=== PATIENT | male | born 1955 | race Caucasian/White ===

== ENCOUNTER 2022-01-02 17:13 | Emergency (ER) | payer OTHER, SELFPAY ==
[2022-01-02 17:14] VITALS: BP 132/99; PULSE 72; RESP 14; TEMP 36.9; O2SAT 98; BMI 27.8
--- NOTE | 2022-01-02 18:23 | XR_ITS ---
PROCEDURE INFORMATION: Exam: XR Right Knee Exam date and time: 01/02/2022 6:23 PM Age: 66 years old Clinical indication: Pain; Knee; Right; Additional info: Pain, swelling TECHNIQUE: Imaging protocol: XR Right knee. Views: 3 views. COMPARISON: No relevant prior studies available. FINDINGS: Bones/joints: Right knee suprapatellar effusion. Soft tissues: Normal. IMPRESSION: Right knee suprapatellar effusion.
--- NOTE | 2022-01-02 18:50 | HMH.EDGENADL ---
ED Disposition Clinical Impression: Effusion, right knee Disposition: Home, Self-Care Condition on Discharge: Good Instructions: How to Use Crutches, DI for Knee Effusion, How to Use a Knee Immobilizer Additional Instructions: Prednisone as prescribed. Knee immobilizer and crutches as needed. Follow-up with orthopedics, Dr. Alfonso, call for appointment. Prescriptions: predniSONE [Prednisone 20mg Tab] 20 mg PO BID #10 tab Transmission Status: Pending to [facility] Referrals: Provider,Jai, [Primary Care Provider] - - Critical Care Critical Care Time: No Attestation: On 01/02/22, the high probability of a clinically significant, sudden or life threatening deterioration of the following system(s) required my full and direct attention, intervention and personal management. The time I documented below is in addition to time spent performing reported procedures but includes the following listed in this critical care notation. Medical Decision Making - Erich Inquiry Pt receiving controlled substance: No Vital Signs: 01/02/22 17:14 Temperature 98.4 F Temperature Source Oral Pulse Rate [Left Radial] 72 Respiratory Rate 14 Blood Pressure [Left Arm] 132/99 H Blood Pressure Mean [Left Arm] 110 Blood Pressure Source [Left Arm] Automatic Cuff Blood Pressure Position [Left Arm] Sitting 02 Sat by Pulse Oximetry 98 Oxygen Delivery Method Room Air Orders (Tests/Meds): ED MEDICATIONS Discontinued Medications Generic Name Dose Route Start Last Admin Trade Name Freq PRN Reason Stop Dose Admin Dexamethasone Sodium Phosphate 10 mg 01/02/22 19:00 Dexamethasone 4mg/Ml 1ml Vial IM 01/02/22 19:01 ONCE ONE - Radiology Data #1 Image(s): Knee Image Reviewed: Yes I reviewed the patient's radiology image Preliminary Findings: Abnormal (effusion) PROCEDURE INFORMATION: Exam: XR Right Knee Exam date and time: 01/02/2022 6:23 PM Age: 66 years old Clinical indication: Pain; Knee; Right; Additional info: Pain, swelling TECHNIQUE: Imaging protocol: XR Right knee. Views: 3 views. COMPARISON: No relevant prior studies available. FINDINGS: Bones/joints: Right knee suprapatellar effusion. Soft tissues: Normal. IMPRESSION: Right knee suprapatellar effusion. General Adult HPI - General Chief complaint: PAIN Stated complaint: R KNEE PAIN Time Seen by Provider: 01/02/22 18:50 Mode of Arrival: Wheelchair Limitations: No Limitations Description of Symptoms (Recalled from ER Triage Doc. by RN): Pt c/o rt knee pain and swelling since yesterday AM. No known injury. Pt reports hx of bursitis in that knee. - History of Present Illness HPI narrative: 2-day history of right knee pain and swelling. Pain with weightbearing. No injury, but says that he was hauling some wood before all of this started. Similar thing happened a few years ago he states he was told he had bursitis in March and eventually need a knee replacement. He said he was given an injection of cortisone and prednisone and that helped. - Related Data Previous Rx's Medication Instructions Recorded predniSONE [Prednisone 20mg 20 mg PO BID #10 tab 01/02/22 Tab] Allergies Allergy/AdvReac Type Severity Reaction Status Date / Time No Known Allergies Allergy Verified 01/02/22 18:08 [facility] History - Hepatitis A Screen Drug use history?: No High risk sexual behaviors?: No History of sexually transmitted infection?: No Currently employed?: No Childcare worker?: No Do you have indoor plumbing?: Yes Do you have electricity?: Yes Attestation statement:: This patient has been screened for Hepatitis A risk factors. I have reviewed the patient's past medical history: Yes ROS Obtained: Yes Systems reviewed as appropriate & no additional complaints - Constitutional Constitutional: Denies fever(s) - Musculoskelet
[2022-01-02 19:15] VITALS: BP 134/89; PULSE 82; RESP 16; TEMP 36.6; O2SAT 97
--- NOTE | 2022-01-02 19:27 | PC.NURSE ---
KNEE IMMOBILIZER APPLIED TO RIGHT KNEE. CRUTCHES GIVEN WITH CRUTCH TRAINING. PT ABLE TO GIVE RETURN DEMONSTRATION.
== END 2022-01-02 19:29 | disposition home or self-care (01) ==
PROVIDERS: Emergency Provider Emergency Medicine
DX: M25.461 Effusion, right knee (principal)
CPT/HCPCS: 29505; 73562; 96372; 99283

== ENCOUNTER 2025-03-22 12:11 | Outpatient (CLI) | payer MEDICARE, SELFPAY ==
--- NOTE | 2025-03-22 12:18 | XR_ITS ---
FINAL REPORT CLINICAL HISTORY: PAIN..no trauma COMPARISON: None FINDINGS: NECK SOFT TISSUE Two views of the neck using soft tissue technique show a normal appearance of the epiglottis. No radiopaque foreign body identified. The precervical soft tissues are unremarkable. There is degenerative disease of the spine without acute osseous abnormality. IMPRESSION: Unremarkable neck exam using soft tissue technique. Reviewed, Interpreted and Dictated by Joan Cage MD Transcribed by Mariama Lopez Authenticated and . [facility]
== END 2025-03-22 23:59 | disposition home or self-care (01) ==
LOC: RAD 12:13
PROVIDERS: PCP Family Medicine; Visit Provider Family Medicine
DX: M54.2 Cervicalgia (principal)
CPT/HCPCS: 70360

== ENCOUNTER 2025-03-28 10:09 | Emergency (ER) | payer OTHER, SELFPAY ==
[2025-03-28 10:20] VITALS: BP 165/101; PULSE 74; RESP 17; TEMP 37.1; O2SAT 95; BMI 25.8
--- NOTE | 2025-03-28 10:37 | CT_ITS ---
FINAL REPORT TECHNIQUE: Axial CT images were performed through the head. Coronal reformatted images were submitted. This study was performed with techniques to keep radiation doses as low as reasonably achievable (ALARA). Individualized dose reduction techniques using automated exposure control or adjustment of mA and/or kV according to the patient's size were employed. CLINICAL HISTORY: posterior COLÓN 1wk, new. no neuro deficits FINDINGS: The ventricles are normal in size. There is no evidence of hemorrhage. There is no mass or edema identified. There is no abnormal extra-axial fluid seen. The sinuses are well aerated. IMPRESSION: No acute intracranial process. Reviewed, Interpreted and Dictated by Zac Jacob MD Transcribed by Geraldine Romero Authenticated and [facility]
[2025-03-28] MEDS: ACETAMINOPHEN 500MG TAB 1000 MG PO (11:00)
[2025-03-28] MEDS: DEXAMETHASONE 4MG TABLET 10 MG PO (11:01)
[2025-03-28] MEDS: IBUPROFEN 600 MG TABLET PO (11:01)
[2025-03-28] MEDS: METOCLOPRAMIDE 10MG TABLET 10 MG PO (11:01)
--- NOTE | 2025-03-28 11:23 | HMH.EDGENADL ---
Discharge Plan Disposition Patient Disposition: Home, Self-Care Chief Complaint: Headache Referrals Follow up/Referrals: Provider,MD Jai [Primary Care Provider] - See instructions Bassam Yañez MD [Staff Physician] - See instructions Activity Restrictions/Add. Instructions Additional Instructions/Restrictions: Call your family doctor to establish care for this visit to the emergency department and schedule follow-up within 48 hours to ensure improvement. If you have any worsening of your condition or any other concerning signs or symptoms, return to the emergency department or your primary care doctor for further evaluation. Call Dr. Yañez to establish care Clinical Impressions Clinical Impression: Migraine Print Language Print Language: Turkmen Discharge ED Provider: Michael Baez General Adult HPI General Chief complaint: Headache Stated complaint: headache Time Seen by Provider: 03/28/25 10:23 Mode of Arrival: Ambulatory Source of Information: Patient Description of Symptoms (Recalled from ER Triage Doc. by RN): pt to the ED with what he feels like is a tension headache that wraps from both temples to his posterior head. pt denies any blurry vision or deficits. pt reports he saw Dr. Schmitt office for his headache but they didnt check his vitals but gave him tylenol #3 instead. History of Present Illness HPI narrative: Please note that above description of symptoms, in this electronic medical record under categorization of recalled from ER triage doctor by RN are reflective of an initial nursing assessment, however, is not reflective of my full history and physical exam that was personally taken and clarified. Consequentially, this preceding description of symptoms, which may include the patient's categorized chief complaint in the EMR, do not reflect my personal clinical impression, and the ultimate description of history of present illness and patient stated complaints should be deferred to this section of the note. Unless stated otherwise or congruent with this section of the note, additional signs, symptoms, or incongruence should be interpreted as inaccurate with my clinical impression. Related Data Allergies Allergy/AdvReac Type Severity Reaction Status Date / Time No Known Allergies Allergy Verified 02/18/22 09:30 [facility] Disclaimer: The information contained in this section may have been updated after the patient was seen, as this information can be updated by other users. Social History Smoking Status: Never smoker alcohol intake: never current occupational status: retired Travel in the last 8 weeks?: None Have you lived/traveled outside US in past 30 days?: No Contact w/someone who lives/traveled outside US past 30 days?: No Exposure to someone with infectious disease in past 14 days?: No Do you have a fever (greater than 100.4 F or 38 C)?: No Have you tested positive for COVID-19?: No Exposed to someone with COVID-19 in past 14 days?: No Do you have a sore throat?: No Do you have a cough?: No Do you have any weakness?: No Do you have any diarrhea?: No Are you experiencing any unusual bleeding?: No Do you have any muscle aches/pain?: No Do you have any abdominal pain?: No Are you experiencing loss of taste or smell?: No Other Medical History Have you received the Flu Vaccine for this season: No Have you received the Pneumonia Vaccine: Yes ROS Obtained: Yes All systems reviewed & no additional complaints except as documented Physical Exam General General appearance: alert Head Head exam: atraumatic and normocephalic Eye Eye exam: Present normal appearance, PERRL and EOMI Neck Neck exam: Present normal inspection, full ROM and trachea midline Respiratory Respiratory exam: Absent respiratory distress, wheezes, stridor, accessory muscle use or prolonged expiratory phase Cardiovascular Cardiovascular exam: Present other (Pulses equal symmetric in upper and lower extremities) Abdominal Exam Abdominal exam: Present soft; Absent distention, tenderness or pulsatile mass Extremities Exam Extremities exam: Absent edema Neurological Exam Neurological exam: Present alert, oriented X3 and CN II-XII intact; Absent motor sensory deficit Skin Skin exam: Present warm and dry; Absent diaphoresis or erythema Medical Decision Making Medical Records Medical records reviewed: Yes I reviewed the patient's medical records. Screening: Per USPSTF and CDC recommendations, given the prevalence of disease in our region, it is our hospital?s policy to screen for HIV and viral Hepatitis for all patients aged 18 and over and those with ongoing risk factors. Erich Inquiry Pt receiving controlled substance: No Erich was queried for this patient: No Vital Signs: 03/28/25 10:20 Temperature 98.7 F Temperature Source Oral Pulse Rate [Left Radial] 74 Respiratory Rate 17 Blood Pressure [Right Arm] 165/101 H Blood Pressure Mean [Right Arm] 122 Blood Pressure Source [Right Arm] Automatic Cuff Blood Pressure Position [Right Arm] Sitting 02 Sat by Pulse Oximetry 95 Oxygen Delivery Method Room Air Orders (Tests/Meds): ED MEDICATIONS Discontinued Medications Generic Name Dose Route Start Last Admin Trade Name Joshua PRN Reason Stop Dose Admin Acetaminophen 1,000 mg 03/28/25 10:37 03/28/25 11:00 Acetaminophen 500mg Tab PO 03/28/25 10:38 1,000 mg ONCE ONE Administration Dexamethasone 10 mg 03/28/25 10:37 03/28/25 11:01 Dexamethasone 4mg Tablet PO 03/28/25 10:38 10 mg ONCE ONE Administration Ibuprofen 600 mg 03/28/25 10:37 03/28/25 11:01 Ibuprofen 600 Mg Tablet PO 03/28/25 10:38 600 mg ONCE ONE Administration Metoclopramide HCl 10 mg 03/28/25 10:37 03/28/25 11:01 Metoclopramide 10mg Tablet PO 03/28/25 10:38 10 mg ONCE ONE Administration ORDERS Category Date Time Status CT head/brain wo con Stat Cat Scan 03/28/25 10:37 Taken Medical Decision Narrative: This is a 69-year-old male no medical history presenting with headache. He states has had a headache since 8 days ago. Dull, achy. Set up care with a family physician around here, Dr. Schmitt. Dr. Schmitt gave him Tylenol 3, which seems to take the edge off, but comes right back after the Tylenol 3 wear off. No neurologic deficits, change in vision, nausea, vomiting, positional headache, or any other concerns. [facility] History obtained the patient. On evaluation, patient neurologically intact, very pleasant, conversational, speaking full sentences, ambulatory. Differential includes headache, migraine, less likely intracranial mass or intracranial bleed, among others. Oral migraine cocktail was administered after discussion with patient wanting to avoid IV. Patient over the age of 65, new headache syndrome that is persistent and worsening, I feel CT is indicated. On independent interpreted CT head, this was nonactionable with no acute findings reevaluation, patient states that he is feeling much better, headache is almost entirely gone.. Because patient at baseline without signs or symptoms of clinical decompensation, deemed appropriate for discharge. Results were relayed to patient who voiced understanding and were agreeable to outpatient management and follow up. I discussed my clinical impression with patient and answered all questions. At this time, the evidence for any other entities in the differential is insufficient to warrant any further testing or ED observation. This was explained as well. Advisory was given that persistent or worsening symptoms require further evaluation. I confirmed the understanding of this discussion. Material Mover disclaimer Much of this encounter note is an electronic director of institutional giving spoken language to printed text. Electronic director of institutional giving of the spoken language may permit errors. Although I have reviewed the note, some errors may still exist. Critical Care Critical Care Time Critical Care Time: No
[2025-03-28 12:32] VITALS: BP 137/80; PULSE 70; RESP 20; TEMP 36.8; O2SAT 98
== END 2025-03-28 12:33 | disposition home or self-care (01) ==
PROVIDERS: Emergency Provider Emergency Medicine
DX: G40.909 Epilepsy, unspecified, not intractable, without status epilepticus (principal)
CPT/HCPCS: 70450; 99284; J8540

== ENCOUNTER 2025-06-02 05:07 | Emergency (ER) | payer SELFPAY ==
[2025-06-02 05:15] VITALS: BP 146/97; PULSE 76; RESP 16; TEMP 37.1; O2SAT 98; BMI 24.3
--- NOTE | 2025-06-02 05:21 | HMH.EDGENADL ---
Discharge Plan Disposition Patient Disposition: Home, Self-Care Condition: Good Referrals Follow up/Referrals: Provider,Referral, [Primary Care Provider, Medical] - See instructions Activity Restrictions/Add. Instructions Additional Instructions/Restrictions: You were evaluated in the ER and are appropriate for discharge at this time. Continue any home medications as previously prescribed. Do not use Q-tips or other cotton swabs in the ear as you could injure your eardrum and pack more wax into the ear. You can car pick up driver an [id number] earwax flush or ask your primary care doctor to fully flush your ears. Make an appointment with your primary care doctor for reevaluation Return to the ER with any new, worsening, or otherwise concerning symptoms. Clinical Impressions Clinical Impression: Excess ear wax Print Language Print Language: Turkish Discharge ED Provider: ePggy Acosta General Adult HPI General Chief complaint: Ear Stated complaint: L ear clogged, can't hear out if it Time Seen by Provider: 06/02/25 05:15 Mode of Arrival: Ambulatory Source of Information: Patient Description of Symptoms (Recalled from ER Triage Doc. by RN): pt presents with c/o plugged ear that began x1 morning ago. Pt reports to holding his nose and puffing air with relief for a short while but its occurred again with no relief despite technique. Pt denies all other complaints stating if you could get just this plug out of my ear I'll get out of your hair History of Present Illness HPI narrative: 69-year-old male presents to the ER complaining of plugged ear. Patient reports that this happened a few days ago and he was able to plug his nose and puff air while getting the plugged sensation to relieve. He states that he woke up this morning with the same plugged sensation but his home techniques did not work.. He denies fevers, chills, headache, dizziness, he states that hearing in the left ear is muffled. He has no numbness, tingling, or weakness. Patient has a history of migraines but denies any headache at this time. No other complaints or concerns. Related Data Allergies Allergy/AdvReac Type Severity Reaction Status Date / Time No Known Allergies Allergy Verified 02/18/22 09:30 [facility] Disclaimer: The information contained in this section may have been updated after the patient was seen, as this information can be updated by other users. Social History Smoking Status: Never smoker alcohol intake: never current occupational status: retired Travel in the last 8 weeks?: None Have you lived/traveled outside US in past 30 days?: No Contact w/someone who lives/traveled outside US past 30 days?: No Exposure to someone with infectious disease in past 14 days?: No Do you have a fever (greater than 100.4 F or 38 C)?: No Have you tested positive for COVID-19?: No Exposed to someone with COVID-19 in past 14 days?: No Do you have a sore throat?: No Do you have a cough?: No Do you have any weakness?: No Do you have any diarrhea?: No Are you experiencing any unusual bleeding?: No Do you have any muscle aches/pain?: No Do you have any abdominal pain?: No Are you experiencing loss of taste or smell?: No Other Medical History Have you received the Flu Vaccine for this season: No Have you received the Pneumonia Vaccine: Yes ROS Obtained: Yes Systems reviewed as appropriate & no additional complaints except as documented Per HPI Physical Exam General General appearance: alert and in no apparent distress Head Head exam: atraumatic and normocephalic Eye Eye exam: Present PERRL and EOMI ENT ENT exam: Present mucous membranes moist and TM's normal bilaterally Expanded ENT Exam External ear exam: Present normal external inspection TM/Canal exam: Left TM: cerumen impaction Neck Neck exam: Present normal inspection and full ROM Chest Chest inspection: Present symmetric chest wall rise Respiratory Respiratory exam: Absent respiratory distress or stridor Cardiovascular Cardiovascular exam: Present regular rate and normal rhythm Extremities Exam Extremities exam: Present full ROM Neurological Exam Neurological exam: Present alert, oriented X3 and normal gait Psychiatric Psychiatric exam: Present normal affect and normal mood Skin Skin exam: Present warm and dry Medical Decision Making Medical Records Medical records reviewed: Yes I reviewed the patient's medical records. Screening: Per USPSTF and CDC recommendations, given the prevalence of disease in our region, it is our hospital?s policy to screen for HIV and viral Hepatitis for all patients aged 18 and over and those with ongoing risk factors. MR Comment: Head CT from March 2025 is negative for acute intracranial abnormality, well aerated sinuses. Erich Inquiry Pt receiving controlled substance: No Vital Signs: 06/02/25 05:15 Temperature 98.7 F Temperature Source Temporal Artery Scan Pulse Rate [Radial] 76 Respiratory Rate 16 Blood Pressure [Right Arm] 146/97 H Blood Pressure Mean [Right Arm] 113 Blood Pressure Position [Right Arm] Sitting 02 Sat by Pulse Oximetry 98 Oxygen Delivery Method Room Air Medical Decision Narrative: In summary, 69-year-old male presents to the ER for complaints of plugged left ear. Differential diagnosis includes but not limited to foreign body, cerumen impaction, otitis media, otitis externa. On initial evaluation patient is hemodynamically stable, afebrile, overall well-appearing. Initial ear exam demonstrates normal-appearing right ear internally and externally with well-appearing tympanic membrane, left ear demonstrates cerumen impaction, unable to visualize the tympanic membrane initially. I was able to gently clear the cerumen with a curette. As soon as the impaction was removed, patient stated oh wow! I can hear! . On reexamination tympanic membrane is easily visualized and demonstrates no abnormalities, no findings of infection or trauma from the cerumen removal. Remainder of exam benign. Patient does not require any labs or imaging. He is appropriate for discharge at this time. No prescriptions were provided, I recommended to the patient to stop using Q-tips and cotton swabs which he states he uses to clear out his ears advising him that these can cause worsening impaction and traumatic injury. I recommended he follow-up with his primary care doctor for reevaluation and recommended he request his PCP flush his ears or that he car pick up driver an [id number] ear flushing kit for home use. At this time patient is appropriate for discharge and comfortable with this plan. Patient was given instructions on symptomatic management, follow up instructions, and return precautions for the emergency department. Patient indicated understanding and was discharged in stable condition. Critical Care Critical Care Time Critical Care Time: No
[2025-06-02 05:22] VITALS: BP 136/74; PULSE 72; RESP 16; TEMP 36.6; O2SAT 98
== END 2025-06-02 05:25 | disposition home or self-care (01) ==
PROVIDERS: Emergency Provider Emergency Medicine
DX: H61.20 Impacted cerumen, unspecified ear (principal); H61.22 Impacted cerumen, left ear
CPT/HCPCS: 99282